=== PATIENT | female | born 1985 | race Caucasian/White ===

== ENCOUNTER 2018-07-19 11:54 | Emergency (ER) | payer OTHER ==
[~2018-07-19] VITALS: Ht 147.3 cm; Wt 59.4 kg
[2018-07-19 12:42] VITALS: BP 159/95
== END 2018-07-19 13:09 | disposition home or self-care (01) ==
LOC: ED 13:05
DX: G43.909 Migraine, unspecified, not intractable, without status migrainosus (principal)
CPT/HCPCS: 99281

== ENCOUNTER → 2018-10-23 | Outpatient (CLI) | payer OTHER | END | disposition home or self-care (01) | LOC: CFH 07:52 | PROVIDERS: ATTEND Nurse Practitioner Family | DX: G43.909 Migraine, unspecified, not intractable, without status migrainosus (principal); G93.5 Compression of brain | CPT/HCPCS: 70450 ==

== ENCOUNTER → 2019-01-08 | Outpatient (CLI) | payer OTHER | END | disposition home or self-care (01) | LOC: CFH 15:58 | PROVIDERS: ATTEND Internal Medicine Cardiovascular Disease | DX: R00.2 Palpitations (principal); Z82.49 Family history of ischemic heart disease and other diseases of the circulatory system | CPT/HCPCS: 93306 ==

== ENCOUNTER → 2019-01-23 | Outpatient (CLI) | payer OTHER | END | disposition home or self-care (01) | LOC: CFH 15:09 | PROVIDERS: ATTEND Psychiatry & Neurology Neurology | DX: G93.5 Compression of brain (principal) | CPT/HCPCS: 70551 ==

== ENCOUNTER 2020-01-10 17:02 | Emergency (ER) | payer OTHER ==
[~2020-01-10] VITALS: Ht 147.3 cm; Wt 60.2 kg
--- NOTE | 2020-01-10 17:33 | NUR ---
ASSUMED CARE OF PATIENT. PATIENT REPORTS DIZZINESS WITH HEADACHES THAT COME AND GO. PT HAS A HX OF HEADACHES. PT WAS SEEN YESTERDAY AT URGENT CARE AND WAS TOLD HER EAR HAD SOME HARD WAX IN IT. PT HAD HER EAR FLUSHED AND REPORTED THE DIZZINESS GOT BETTER, BUT CAME BACK TODAY. CARDICA MONITOR ON. NSR NOTED. CALL LIGHT IN PLACE. BLANKET GIVEN. VS STABLE. NO ACUTE DISTRESS NOTED. WILL CONTINUE TO MONITOR.
--- NOTE | 2020-01-10 17:52 | NUR ---
DR FELIX HAS SEEN PATIENT.
--- NOTE | 2020-01-10 18:01 | NUR ---
PT RESTING IN ROOM. REGULAR RESP. NO ACUTE DISTRESS NOTED. CALL LIGHT IN PLACE. WILL CONTINUE TO MONITOR.
--- NOTE | 2020-01-10 18:15 | NUR ---
BREAK NOTE: PT SITTING UP IN BED, NAD NOTED AT THIS TIME, PT DENIES ANY NEEDS AT THIS TIME. RESPIRATIONS EVEN AND UNLABORED ON RA. VISITOR AT BEDSIDE.
[2020-01-10 18:22] LABS: BASOPHILS # (AUTO) 0.03 x10^3/uL (0-0.1); BASOPHILS % (AUTO) 0 % (0-1); EOSINOPHILS # (AUTO) 0.01 x10^3/uL (0-0.4); EOSINOPHILS % (AUTO) 0 % (1-7); LYMPHOCYTES # (AUTO) 1.56 x10^3/uL (1-3.4); LYMPHOCYTES % (AUTO) 16 % (22-44); MD NO; MEAN CORPUSCULAR HEMOGLOBIN 32.1 pg (27.0-34.8); MEAN CORPUSCULAR HGB CONC 34.6 g/dL (32.4-35.8); MEAN CORPUSCULAR VOLUME 92.8 fL (80-100); MEAN PLATELET VOLUME 8.8 fL (7.4-10.4); MONOCYTES # (AUTO) 0.54 x10^3/uL (0.2-0.8); MONOCYTES % (AUTO) 5 % (2-9); NEUTROPHILS # (AUTO) 7.89 x10^3/uL (1.8-6.8); NEUTROPHILS % (AUTO) 79 % (42-75); PLATELET COUNT 243 x10^3/uL (130-400); RED BLOOD COUNT 4.56 x10^6/uL (3.82-5.3); RED CELL DISTRIBUTION WIDTH 12.9 % (9.6-15.2)
[2020-01-10 18:33] LABS: ALBUMIN 4.4 g/dL (3.4-5.0); ANION GAP 6 mmol/L (5-15); CALCIUM 9.2 mg/dL (8.5-10.1); CHLORIDE 109 mmol/L (98-107); CREATININE 0.59 mg/dL (0.55-1.02)
--- NOTE | 2020-01-10 18:56 | NUR ---
REPORT GIVEN TO SANGEETHA NASH
--- NOTE | 2020-01-10 18:57 | NUR ---
REPORT RECEIVED FROM CIRO VIVAS.
[2020-01-10 19:02] VITALS: BP 125/80
--- NOTE | 2020-01-10 19:32 | NUR ---
Patient given discharge instructions and they have confirmed that they understand the instructions. Patient ambulatory with steady gait.
== END 2020-01-10 19:33 | disposition home or self-care (01) ==
LOC: ED 17:22
DX: G43.909 Migraine, unspecified, not intractable, without status migrainosus (principal); R42 Dizziness and giddiness; F17.200 Nicotine dependence, unspecified, uncomplicated
CPT/HCPCS: 36415; 80048; 82040; 85025; 93005; 99284

== ENCOUNTER 2020-01-22 14:00 | Emergency (ER) | payer OTHER ==
[~2020-01-22] VITALS: Ht 147.3 cm; Wt 59.2 kg
--- NOTE | 2020-01-22 14:26 | NUR ---
Late Entry: Bedside report received from Ila VIVAS
[2020-01-22] MEDS ORDERED: KETOROLAC 30 MG/1 ML IM ONE (14:30)
--- NOTE | 2020-01-22 14:42 | NUR ---
Pt to CT via gurney, NAD, even and unlabored respirations.
[2020-01-22 15:31] VITALS: BP 123/77
== END 2020-01-22 15:34 | disposition home or self-care (01) ==
LOC: ED 14:28
DX: R51 Headache (principal); R42 Dizziness and giddiness; F17.200 Nicotine dependence, unspecified, uncomplicated
CPT/HCPCS: 70450; 99284